=== PATIENT | male | born 1955 | race Caucasian/White ===

== ENCOUNTER 2020-12-26 07:39 | Outpatient (CLI) | payer BC, SELFPAY ==
[2020-12-26 08:52] LABS: Hematocrit 43.1 % (42.0-52.0); Hemoglobin 14.8 g/dL (14.0-18.0)
[2020-12-26 09:21] LABS: Anion Gap 1 mmol/L (8-16); Blood Urea Nitrogen 22 mg/dL (9-20); Calcium 8.8 mg/dL (8.4-10.2); Carbon Dioxide 34 mmol/L (22-30); Chloride 103 mmol/L (98-107); Estimated Glomerular Filt Rate > 60; Glucose 115 mg/dL (75-110); Potassium 4.5 mmol/L (3.4-5.0); Sodium 138 mmol/L (137-145)
[2020-12-26 09:33] LABS: LDL Cholesterol Direct 65 mg/dL
[2020-12-26 09:36] LABS: Hemoglobin A1C 7.1 % (<5.7)
[2020-12-26 10:43] LABS: Free T4 Free Thyroxine 1.25 ng/mL (0.78-2.19)
[2020-12-26 13:43] LABS: Prostate Specific Antigen < 0.1 ng/mL (< OR = 4.0)
== END 2020-12-26 07:40 | disposition home or self-care (01) ==
DX: E10.9 Type 1 diabetes mellitus without complications (principal); R94.8 Abnormal results of function studies of other organs and systems
CPT/HCPCS: 36415; 80048; 83036; 83721; 84153; 84439; 84443; 85014; 85018

== ENCOUNTER 2021-11-20 07:36 | Outpatient (CLI) | payer BC, SELFPAY ==
[2021-11-20 08:12] LABS: Estimated Glomerular Filt Rate > 60; Potassium 4.2 mmol/L (3.4-5.0)
[2021-11-20 08:15] LABS: Hemoglobin A1C 7.2 % (<5.7)
== END 2021-11-20 07:37 | disposition home or self-care (01) ==
LOC: ANHLAB 07:39
DX: E10.9 Type 1 diabetes mellitus without complications (principal)
CPT/HCPCS: 36415; 82565; 83036; 84132

== ENCOUNTER 2022-04-30 07:06 | Outpatient (CLI) | payer BC, SELFPAY ==
[2022-04-30 08:04] LABS: Cholesterol 129 mg/dL (0-200); Estimated Glomerular Filt Rate > 60; HDL Direct 42 mg/dL; Potassium 4.2 mmol/L (3.4-5.0); Triglycerides 48 mg/dL (<150)
[2022-04-30 08:05] LABS: Hemoglobin A1C 6.3 % (<5.7)
[2022-04-30 08:16] LABS: LDL Cholesterol Direct 66 mg/dL
[2022-04-30 10:29] LABS: Creatinine Urine 168.8 mg/dL
[2022-04-30 10:37] LABS: MALB Creatinine Ratio 3.9 mg/g (0-30); Microalbumin Urine Random 6.5 mg/L (0-16.7)
== END 2022-04-30 07:07 | disposition home or self-care (01) ==
LOC: ANHLAB 07:13
DX: E10.9 Type 1 diabetes mellitus without complications (principal); E78.49 Other hyperlipidemia
CPT/HCPCS: 36415; 80061; 82043; 82565; 83036; 84132

== ENCOUNTER 2022-10-29 07:30 | Outpatient (CLI) | payer BC, SELFPAY ==
[2022-10-29 08:46] LABS: Hemoglobin A1C 6.3 % (<5.7)
== END 2022-10-29 07:31 | disposition home or self-care (01) ==
DX: E10.9 Type 1 diabetes mellitus without complications (principal)
CPT/HCPCS: 36415; 83036

== ENCOUNTER 2023-04-28 07:28 | Outpatient (CLI) | payer BC, SELFPAY ==
[2023-04-28 08:27] LABS: Alanine Aminotransferase 13 U/L (6-50); Albumin Level 4.1 g/dL (3.5-5.1); Alkaline Phosphatase 43 U/L (38-126); Anion Gap 3 mmol/L (8-16); Aspartate Amino Transferase 17 U/L (17-59); Bilirubin,Total 0.8 mg/dL (0.2-1.3); Blood Urea Nitrogen 24 mg/dL (9-20); Calcium 8.5 mg/dL (8.4-10.2); Carbon Dioxide 35 mmol/L (22-30); Chloride 99 mmol/L (98-107); Estimated Glomerular Filt Rate > 60; Glucose 106 mg/dL (65-110); Lactate Dehydrogenase 129 U/L (120-246); Potassium 3.7 mmol/L (3.4-5.0); Sodium 137 mmol/L (137-145)
[2023-04-28 08:42] LABS: Creatinine Urine 255.6 mg/dL
[2023-04-28 08:46] LABS: MALB Creatinine Ratio 5.6 mg/g (0-30); Microalbumin Urine Random 14.4 mg/L (0-16.7)
[2023-04-28 08:48] LABS: Hemoglobin A1C 6.4 % (<5.7)
== END 2023-04-28 07:29 | disposition home or self-care (01) ==
DX: E10.9 Type 1 diabetes mellitus without complications (principal); E78.49 Other hyperlipidemia
CPT/HCPCS: 36415; 80053; 82043; 83036; 83615; 84443

== ENCOUNTER 2023-12-23 07:24 | Outpatient (CLI) | payer BC, SELFPAY ==
[2023-12-23 09:52] LABS: Hemoglobin A1C 6.4 % (<5.7)
== END 2023-12-23 07:25 | disposition home or self-care (01) ==
DX: E10.9 Type 1 diabetes mellitus without complications (principal)
CPT/HCPCS: 36415; 83036

== ENCOUNTER 2024-06-29 07:20 | Outpatient (CLI) | payer BC, SELFPAY ==
[2024-06-29 09:24] LABS: Microalbumin Urine Random 9.4 mg/L (0-16.7)
[2024-06-29 09:25] LABS: Creatinine Urine 233.2 mg/dL
[2024-06-29 20:24] LABS: Hemoglobin A1C 6.3 % (<5.7)
[2024-06-29 21:56] LABS: Alanine Aminotransferase 11 U/L (6-50); Albumin Level 3.9 g/dL (3.5-5.1); Alkaline Phosphatase 45 U/L (38-126); Anion Gap 6 mmol/L (4-12); Aspartate Amino Transferase 22 U/L (17-59); Bilirubin,Total 0.6 mg/dL (0.2-1.3); Blood Urea Nitrogen 24 mg/dL (9-20); Calcium 8.7 mg/dL (8.4-10.2); Carbon Dioxide 32 mmol/L (22-30); Chloride 101 mmol/L (98-107); Cholesterol 119 mg/dL (0-200); Estimated Glomerular Filt Rate > 60; Glucose 53 mg/dL (65-110); HDL Direct 34 mg/dL; Potassium 4.5 mmol/L (3.4-5.0); Sodium 139 mmol/L (137-145); Triglycerides 48 mg/dL (<150)
[2024-06-29 22:19] LABS: LDL Cholesterol Direct 63 mg/dL
[2024-06-29 23:05] LABS: Prostate Specific Antigen 0.1 ng/mL (< OR = 4.0)
== END 2024-06-29 07:21 | disposition home or self-care (01) ==
DX: R94.8 Abnormal results of function studies of other organs and systems (principal); E10.9 Type 1 diabetes mellitus without complications; E78.49 Other hyperlipidemia
CPT/HCPCS: 36415; 80053; 80061; 82043; 83036; 84153; 84443

== ENCOUNTER 2025-07-19 08:11 | Outpatient (CLI) | payer BC, SELFPAY ==
--- OUTSIDE RECORDS SUMMARY | 2024-07-05 06:30 | XMS_ITS ---
Author Organization [facility] [employer] Address [address] [place] [address] Care Team Providers Care Transmission Systems Operator Name Role Phone none, none Primary Care Provider UnavailJulianne Londono Unavailable [phone] REASON FOR VISIT 6mo dexcom f/u, labs at [facility] Encounters Encounter Location Date Provider Diagnosis [facility] [address] [address] 07/05/2024 Julianne Stubbs Plan Of Treatment No Information Progress Notes * James HART RDOB: (69 yo M)Acc No.[id number]:07/05/2024 DM Sensor Patient: Sandra CHAVEZ Alagabriela Peguero Provider: Bal Stubbs APRN :1955 A ge:68 Y S ex:Male Date:07/05/2024 [place] [facility] Subjective: * Chief Complaints: * 1 . 6mo dexcom f/u, labs at [facility]. * Medical History: Objective: * Vitals: Assessment: Plan: * Treatment: * * Electronic signature of Radha Stubbs APRN on 07/19/2025 at 08:21 AM CDT Sign off status: Pending * Provider: Bal Stubbs APRN Date: 0 07/05/2024 Generated for Dickson pinedo/Faxing/eTransmitting on: 0 07/19/2025 08:21 AM CDT
--- OUTSIDE RECORDS SUMMARY | 2025-02-01 05:00 | XMS_ITS | Continuity of Care Document ---
Author Organization [facility] Address [address] [place] [address] Phone Care Team Providers Care Automobile Body Customizer Name Role Phone Pedro Mancini MD, MD Unavailable Unavailable Allergies, Adverse Reactions, Alerts Substance Reaction Status Criticality No Known Allergies Active No Inform ation Medications Medication Instructions Dosage Effective Dates (start - stop) Status Comments Humalog 100 unit/mL subcutaneous solution inject by subcutaneous route per prescriber's instructions. Insulin dosing requires individualization. 0.00 - Active carvedilol 3.125 mg tablet take 1 tablet by oral route 2 times every day with food 3.125 MG - Active Tresiba FlexTouch U-100 insulin 100 unit/mL (3 mL) subcutaneous pen inject by subcutaneous route as per insulin protocol 0.00 - Active VITAMIN C (unknown strength) Not Available - Active FISH OIL (unknown strength) Not Available - Active VITAMIN D3 (unknown strength) Not Available - Active STANBACK ANALGESIC (unknown strength) Not Available - Active DIOVAN (unknown strength) Not Available - Active SIMVASTATIN (unknown strength) take 1 tablet by oral route every day in the evening Not Available - Active Procedures Procedure Date OFFICE/OUTPATIENT VISIT, EST REFRACTION EYE EXAM & TREATMENT OFFICE/OUTPATIENT VISIT, EST REFRACTION EYE EXAM & TREATMENT REFRACTION EYE EXAM & TREATMENT EYE EXAM & TREATMENT EYE EXAM & TREATMENT REFRACTION REFRACTION EYE EXAM & TREATMENT REFRACTION EYE EXAM & TREATMENT OFFICE/OUTPATIENT VISIT, EST EYE EXAM & TREATMENT REFRACTION EYE EXAM WITH PHOTOS EYE EXAM ESTABLISHED PAT OFFICE/OUTPATIENT VISIT, EST EYE EXAM & TREATMENT REFRACTION Advance Directives Directive Yes / No Effective Date File Name No Information Encounters Encounter Description Practice Location Reason(s) For Visit Diagnoses Date Provider Providers Copied on Encounter OFFICE/OUTPA TIENT VISIT, EST [facility], [address] [place] [address], [id number] tel:[phone] [facility] IDDM right eye and left eye (chief complaint) cataract right eye and left eye (chief complaint) Type 2 diabetes mellitus without complication, with long-term current use of insulinLong term (current) use of insulinAge-relat ed nuclear cataract, bilateralOcular hypertension, bilateral Jan- 5 [facility], [address] [place] [address] [place], [place], [id number]. tel:[phone] [facility], [address] [place] [address] [place], [place], [id number] tel:[phone] [facility] IDDM right eye and left eye several years (chief complaint) cataract right eye and left eye several years (chief complaint) LILY right eye and left eye several years (chief complaint) Type 2 diabetes mellitus without complication, with long-term current use of insulinAge-relat ed nuclear cataract, bilateralDry eye syndrome of bilateral lacrimal glandsPresbyopia 3 [facility], [facility] [place], [id number]. tel:[phone] Referring Provider: Pedro Hooker, [facility] [place], [address]. tel:[phone] OFFICE/OUTPA TIENT VISIT, EST [facility], [place], [id number] [phone] [facility] IDDM right eye and left eye several years (chief complaint) tearing left > right month(s) (chief complaint) cataract right eye and left eye several years (chief complaint) Type 2 diabetes mellitus without complication, with long-term current use of insulinLong term (current) use of insulinAge-relat ed nuclear cataract, bilateralDry eye syndrome of bilateral lacrimal glands 1 [facility], [facility] [place], [id number]. tel:[phone] [facility], [facility] [place], [id number] tel:[phone] [facility] f/u cataracts right eye and left eye several years (chief complaint) IDDM right eye and left eye 35 year(s) (chief complaint) Type 2 diabetes mellitus without complication, with long-term current use of insulinLong term (current) use of insulinPresbyopi aAge-related nuclear cataract, bilateral 9 [facility], [facility] [place], [id number]. [phone] [facility], [place], [id number] tel:[phone] [facility] half-way (current) use of insulinPresbyopi aType 2 diabetes mellitus without complication, with long-term current use of insulinAge-relat ed nuclear cataract, bilateral 7 [facility], [address], [id number]. tel:[phone] [facility], [facility] [place], [id number] tel:[phone] [facility] [place] Insulin use (long-term) in type 2 diabetesLong term (current) use of insulin 5 [facility], [address] [place] [place], [id number]. tel:[phone] [facility], [facility] [place], [id number] tel:[phone] [facility] Diabetes Mellitus Type 2, UncomplicatedPre sbyopia Aug- 4 [facility], [facility] [place], [id number]. tel:[phone] [facility], [facility] [place], [id number] tel:[phone] [facility] [place] Diabetes Mellitus Type 2, UncomplicatedPre sbyopiaIncipient senile cataract Jun- 3 [facility], [facility] [place], [id number]. tel:[phone] [facility], [facility] [place], [id number] tel:[phone] [facility] [place] Diabetes mellitus without mention of complication,Inc ipient senile cataract Feb-0 2 [facility], [facility] [place], [id number]. tel:[phone] [facility], [facility] [place], [id number] tel:[phone] [facility] [place] No Information Dec- 2 [facility], [facility] [place], [id number]. tel:[phone] OFFICE/OUTPA TIENT VISIT, EST [facility], [address], [id number] tel:[phone] [facility] [place] Diabetes mellitus without mention of complication, type II or unspecified type, not stated as uncontrolled Jan-3 0- 1 [facility], [facility] [place], [id number]. tel:[phone] [facility], [facility] [place], [id number] tel:[phone] [facility] [place] Diabetes mellitus without mention of complication, type II or unspecified type, not stated as uncontrolled Jan-1 0-201 0 [facility], [facility] [place], [id number]. tel:[phone] [facility], [facility] [place], [id number] tel:[phone] [facility] [place] Punctate keratitis Oct-0 9 [facility], [facility] [place], [id number]. tel:[phone] OFFICE/OUTPA TIENT VISIT, EST [facility], [facility] [place], [id number] tel:[phone] [facility] [place] Diabetes mellitus without mention of complication, type II or unspecified type, not stated as uncontrolled 9 [facility], [facility] [place], [id number]. tel:[phone] [facility] [place], [id number] tel:[phone] [facility] [place] Diabetes mellitus without mention of complication, type II or unspecified type, not stated as uncontrolled 8 [facility], [facility] [place], [id number]. tel:[phone] Family History Family Member Type Diagnosis Age At Onset Mother Problem (finding) Retinal Detachment Payers Payer name Insurance type Covered libertarian ID Authoriza tion(s) Medicare [place] MB [id number] [facility] [id number] Social History Type Description Quantity Date Captured Comments Alcohol Use Details Caffeine Use Details Unknown Tobacco Use Status Current non-smoker Smoking Status Never smoker Non-Smoking Tobacco Use Details : No Details Available : No Details Available Sex Male Chief Complaint And Reason For Visit From encounter dated '02/01/2025 10:00'. IDDM right eye and left eye (chief complaint) cataract right eye and left eye (chief complaint) Reason For Referral Reason For Referral No Information History Of Present Illness Encounter Date Complaint History Of Prese nt Illness cataract The 69 year old male presents for cataract in the right eye and left eye. no va changes not using any GTTS IDDM The 69 year old male presents for IDDM in the right eye and left eye. Last A1c was 2 weeks ago 6.1, BS is 88 right now cataract The 67 year old presents for evaluation of cataract in the right eye and left eye. It started several years ago. It affects near vision. The symptom is constant. The condition is worsening. blurry va nva is getting worse, but dva pt feels like has gotten a little better. LILY The 67 year old presents for evaluation of LILY in the right eye and left eye. It started several years ago. The symptom is constant. The condition is improving. Not using AT's, doesn't notice any dryness IDDM The 67 year old presents for evaluation of IDDM in the right eye and left eye. It started several years ago. The symptom is constant. The condition is stable. pt said his BS spiked after lunch today, which is not normal for his. 260 right after lunch.A1C 6.4BS just before lunch 110pt said he feels like his BS does sometimes make his va blurry tearing The 65 year old presents for evaluation of tearing in the left > right. It started month(s) ago. It affects OS > OD. The symptom is intermittent. It occurs with no pattern. The condition is not any better. Does not use any AT's cataract The 65 year old presents for evaluation of cataract in the right eye and left eye. It started several years ago. It affects VA not affected. The symptom is constant. It occurs always. The condition is stable. VA has been stable OU with current glasses. IDDM The 65 year old presents for evaluation of IDDM in the right eye and left eye. It started several years ago. It affects OU. The symptom is constant. It occurs always. The condition is stable. IDDM The 63 year old presents for evaluation of IDDM in the right eye and left eye. It started about 35 year(s) ago. The symptom is constant. It occurs always. The condition is stable. f/u cataracts The 63 year old presents for evaluation of f/u cataracts in the right eye and left eye. It started several years ago. It affects near vision. The symptom is constant. It occurs always. The condition is worsening. The condition is described as blurring. In addition, the condition is associated with reading. Pt denies wearing any glasses to read. Functional Status Date Functional Assessmen t No Information Instructions Date Instruction Additional Infor vonnie Return in 1 year Pedro Valle MD for Complete. Related to Type 2 diabetes mellitus without complication, with long-term current use of insulin Impression/Plan Related to Ocula r hypertension, bilateral Impression/Plan Related to Age-r elated nuclear cataract, bilateral Impression/Plan Related to half-way (current) use of insulin Impression/Plan Related to Type 2 diabetes mellitus without complication, with long-term current use of insulin Return in 1 year Pedro Valle MD for Complete and Dilate. Related to Type 2 diabetes mellitus without complication, with long-term current use of insulin Impression/Plan Related to Presb yopia Impression/Plan Related to Type 2 diabetes mellitus without complication, with long-term current use of insulin Impression/Plan Related to Age-r elated nuclear cataract, bilateral Impression/Plan Related to Dry e ye syndrome of bilateral lacrimal glands Return in 1 year Pedro Valle MD for Complete. Related to Type 2 diabetes mellitus without complication, with long-term current use of insulin Impression/Plan Related to Dry e ye syndrome of bilateral lacrimal glands Impression/Plan Related to Age-r elated nuclear cataract, bilateral Impression/Plan Related to Type 2 diabetes mellitus without complication, with long-term current use of insulin Impression/Plan Related to half-way (current) use of insulin Return in 1 year Pedro Valle MD for Complete. Related to Type 2 diabetes mellitus without complication, with long-term current use of insulin Impression/Plan Related to Type 2 diabetes mellitus without complication, with long-term current use of insulin Impression/Plan Related to salvage determiner (current) use of insulin Impression/Plan Related to Presb yopia Impression/Plan Related to Age-r elated nuclear cataract, bilateral Age-related nuclear cataract of both eyes OU Condition: established, stable. - Discussed with pt a cataract is clouding of the lens of the eye. Cataracts are generally not harmful to the eyes. When vision is blurry enough to interfere with a person's daily routine, cataract removal may be performed. Cataract surgery is relatively easy to go through and is very highly successful. Outcome may be limited after surgery if other eye disease is present.Not bothersome to pt at this time. Pt to call if vision/glare becomes bothersome. Monitor. Related to Age-related nuclear cataract of both eyes Presbyopia OU Condit ion: established, stable. - New glasses rx given to pt today. Pt to call with any vision problems. Related to Presbyopia Follow up - Return i n 1 year with Pedro Mancini MD for Complete. Related to Type 2 diabetes mellitus without complication, with long-term current use of insulin half-way (current) use of insulin OU Condition: established, stable. - See plan 1 Related to salvage determiner (current) use of insulin Type 2 diabetes sully itus without complication, with long-term current use of insulin OU Condition: established, stable. - Discussed with pt eye exam at least yearly. Control blood sugar, blood pressure and serum lipids to help avoid vision loss (which may become severe). Laser or medication treatment may be indicated if vision is ever threatened by diabetic eye changes. Continue insulin and/or diabetic medication(s) as directed by prescribing physician.No PSYCHOLOGICAL OPERATIONS SPECIALIST. Monitor. Related to Type 2 diabetes mellitus without complication, with long-term current use of insulin half-way (current) use of insulin OU Condition: established, stable. - Will continue to observe condition and or symptoms. Related to salvage determiner (current) use of insulin Insulin use (long-te rm) in type 2 diabetes OU Condition: established, stable. - Explained how diabetes can harm the eye and lead to vision loss. Stressed blood sugar/blood pressure/chol/lipid control to reduce risk of future progression. No diabetic changes seen today. Will continue to observe condition and or symptoms. Call with decreased vision or increased floaters. Related to Insulin use (long-term) in type 2 diabetes Follow up - Return i n 1 year with Pedro Mancini MD for Complete. Related to Insulin use (long-term) in type 2 diabetes Diabetes Mellitus Ty pe 2, Uncomplicated - Educational materials provided: Related to Diabetes Mellitus Type 2, Uncomplicated Diabetes Mellitus Ty pe 2, Uncomplicated OU Condition: established, stable. - Discussed eye exam at least yearly. Control blood sugar, blood pressure and serum lipids to help avoid vision loss (which may become severe). Laser or medication treatment may be indicated if vision is ever threatened by diabetic eye changes. Monitor. Related to Diabetes Mellitus Type 2, Uncomplicated Presbyopia OU Condit ion: established, stable. - New glasses rx given to pt today. Related to Presbyopia Follow up - Return i n 1 year with Pedro Mancini MD for Complete. Related to Diabetes Mellitus Type 2, Uncomplicated Diabetes mellitus wi thout mention of complication, OU Condition: established, stable. - Discussed eye exam at least yearly. Control blood sugar, blood pressure and serum lipids to help avoid vision loss (which may become severe). Laser or medication treatment may be indicated if vision is ever threatened by diabetic eye changes. Monitor. Related to Diabetes mellitus without mention of complication, Presbyopia OU Condit ion: established, stable. - New glasses rx given to pt today. Related to Presbyopia Follow up - Return i n 1 year with Pedro Mancini MD for Complete. Related to Diabetes mellitus without mention of complication, Diabetes mellitus wi thout mention of complication, - Educational materials provided: Related to Diabetes mellitus without mention of complication, Incipient senile cat aract OU Condition: established, stable. - Discussed a cataract is clouding of the lens of the eye. Cataracts are generally not harmful to the eyes. When vision is blurry enough to interfere with a person's daily routine, cataract removal may be performed. Cataract surgery is relatively easy to go through and is very highly successful. Outcome may be limited after surgery if other eye disease is present. Monitor. Related to Incipient senile cataract Incipient senile cat aract OS Condition: new prob, no addtl w/u needed. - A cataract is clouding of the lens of the eye. Cataracts are generally not harmful to the eyes. When vision is blurry enough to interfere with a person's daily routine, cataract removal may be performed. Cataract surgery is relatively easy to go through and is very highly successful. Outcome may be limited after surgery if other eye disease is present.New glasses rx given to pt today. Related to Incipient senile cataract Diabetes mellitus wi thout mention of complication, OU Condition: established, stable. - Eye exam at least yearly. Control blood sugar, blood pressure and serum lipids to help avoid vision loss (which may become severe). Laser or medication treatment may be indicated if vision is ever threatened by diabetic eye changes. Related to Diabetes mellitus without mention of complication, Follow up - Return i n 1 year with Pedro Mancini MD for Complete. Related to Diabetes mellitus without mention of complication, Assessments Type Assessment Date assessment Type 2 diabetes sully itus without complication, with long-term current use of insulin assessment half-way (current) use of insul in assessment Age-related nuclear cataract, bi lateral impression Type 2 diabetes sully itus without complication, with long-term current use of insulin: E11.9 impression salvage determiner (current) use of insulin: Z79.4 Bilateral. Condition: established, stable impression Age-related nuclear cataract, bilateral: H25.13 Bilateral. Condition: established, slightly worse assessment Ocular hypertension, bilateral M impression Ocular hypertension, bilateral: H40.053 Bilateral. Condition: new problem, addtl w/u needed Patient Care Teams Name Effective Dates (start - stop) Status Members No Information
--- OUTSIDE RECORDS SUMMARY | 2025-07-19 08:22 | XMS_ITS | Patient Health Record ---
Author Organization [employer] [facility] [employer] [facility] Address [address] [place] [address] Care Team Providers Care Call Center Operator Name Role Phone none, none Primary Care Provider Julianne Yates Unavailable [phone] Allergies No Known Allergies Reason For Referral No Information Medications Medication SIG (Take, Route, Frequency, Duration) Notes Start Date End Date Status Vitamin D3 50 MCG (1999) 2 tablet Orally Once a day A ctive Aspir-Low 81 MG 1 tablet Orally Once a day; Duration: 30 day(s) Active Dexcom G7 Sensor - as directed Invitro 1 sensor every 10 days; Duration: 90 days 10/03/2023 Active OneTouch Ultra Test 0 USE 1 TEST STRIP F OUR TIMES DAILY WHEN TESTING BLOOD SUGAR; Duration: 06/13/2014 Active BD Pen Needle Harriet 2nd Gen 32G X 4 MM use one pen needle in vitro 4 times daily; Duration: 90 days Active Vitamin C 1000 MG 1 tablet Orally Once a day Active Simvastatin 20 MG TAKE 1 TABLET BY ANGELINE TH EVERY DAY IN THE EVENING; Duration: 90 Active Carvedilol 6.25 MG 1 tablet with food O rally Twice a day; Duration: 90 days Active Valsartan-hydroCHLOROthiaz radha 320-12.5 MG TAKE 1 TABLET BY MOUTH EVERY DAY; Duration: 90 Active Fish Oil 1000 MG 1 capsule Orally Onc e a day Active Tresiba FlexTouch 100 UNIT/ML inject 14 units under the skin daily Subcutaneous once a day; Duration: 90 days Active OneTouch Ultra Test 0 TEST BLOOD SUGAR F OUR TIMES DAILY.; Duration: 90 Activ e HumaLOG 100 UNIT/ML 4- 10 units Subcutan eous 3 times daily before meals; Duration: 90 days Active Glucagon Emergency 1 MG as directed Inje ction as directed; Duration: 30 days 06/20/2019 Active HumaLOG 100 UNIT/ML INJECT 5 TO 19 UNITS UNDER THE SKIN THREE TIMES DAILY DIRECTED; Duration: 90 Active OneTouch UltraSmart w/Device as directed Three times a day Active Immunizations Vaccine Route Administration Date Status Comme nts Afluria Flu Vaccine IM Intramuscular 09/26/2019 Administer ed Afluria Flu Vaccine IM Intramuscular 10/01/2020 Administer ed Afluria Flu Vaccine IM Intramuscular 01/02/2024 Administer ed Flucelvax IM Intramuscular 12/06/2018 Administered zzzFlucelvax IM Intramuscular 12/08/2017 Administered Problems Problem Type SNOMED Code ICD Code Onset Dates Problem Status W/U Status Risk Notes Problem Essential hypertension (89949225) Essential (primary) hypertension (I10) Active confirmed Problem Type I diabetes mellitus without complication (016949465) Type 1 diabetes mellitus without complications (E10.9) Active confirmed Problem Cardiac arrhythmia (171102948) Cardiac arrhythmia (I49.9) Active confirmed Problem Hyperlipidemia (62433131) Other hyperlipidemia (E78.49) Active confirmed Plan Of Treatment Future Test Test Name Order Date Hemoglobin 10/01/2020 HEMATOCRIT 10/01/2020 TSH 06/25/2024 Hgb A1c with eAG Estimation 06/25/2024 Albumin/Creatinine Ratio,Urine 4 Comp. Metabolic Panel (14) 06/25/2024 PSA Total (Reflex To Free) 06/25/2024 LP+LDL/HDL Ratio 06/25/2024 Insurance Providers Payer Name Payer Address Payer Phone Subscriber Number Group Number Insured Name Patient Relationship to Insured Coverage Start Date Coverage End Date [facility] [address] [place] [address] [id number] James Hart Self - patient is the insured Medical (General) History Medical History History ICD Code Diabetes type 1 since about 1982 hypertension hyperlipidemia prostate cancer Surgical History Surgery Date(Month/Year) prostate seed cancer treatment implant tonsilectomy & adnoidectomy 1960
--- OUTSIDE RECORDS SUMMARY | 2025-07-19 08:22 | XMS_ITS | Clinical Summary ---
Author Organization [facility] Address [address] [place] [address] Care Team Providers Care Restaurant Service Manager Name Role Phone No, Physician Primary Care Provider [phone] Allergies No known active allergies Medications aspirin 81 mg tablet daily. Active ONETOUCH ULTRA BLUE TEST STRIP strip TEST BLOOD SUGAR QID. 3 8 Active carvedilol (COREG) 6.25 mg tablet TK 1 T PO BID 1 8 Active BASAGLAR KWIKPEN U-100 INSULIN 100 unit/mL (3 mL) insulin pen UTD INJ 23 UNITS HS SC 4 8 Active simvastatin (ZOCOR) 20 mg tablet daily. Active valsartan-hydro chlorothiazide (DIOVAN-HCT) 320-12.5 mg per tablet TK 1 T PO QD 2 8 Active HumaLOG U-100 Insulin 100 unit/mL cartridge ADMINISTER 5 TO 19 UNITS UNDER THE SKIN THREE TIMES DAILY FOR 9 DAYS DIRECTED 0 Active Tresiba FlexTouch U-100 100 unit/mL (3 mL) insulin pen INJ 15 UNITS SC D 0 Active cholecalciferol (VITAMIN D-3) 2000 unit capsule 2,000 Units daily Active Active Problems Problem Noted Date Diagnosed Date Hyperlipidemia 04/15/2017 Hypertension 04/15/2017 Premature atrial contraction 04/15/2017 Right fascicular block 04/15/2017 Surgical History Surgery Date Site/Laterality Comments TONSILLECTOMY PROSTATE SURGERY Medical History Medical History Date Comments Cancer (HCC) Diabetes mellitus (HCC) Hypertension Family History Medical History Relation Name Comments Cancer Father Diabetes Father Heart disease Father Heart disease Mother Family history of cardiac disorder - (Added by TW Conv) Hypertension Mother Relation Name Status Comments Father Mother Social History Tobacco Use Types Packs/Day Years Used Date Smoking Tobacco: Never Smokeless Tobacco: Never Personal Safety Answer Date Recorded Getting School Help Needed Not on file 11/30 Sex and Gender Information Value Date Recorded Sex Assigned at Not on file 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 Gender Identity Not on file Sexual Orientation Not on file Obstetrics History Last Filed Vital Signs Vital Sign Reading Time Taken Comments Blood Pressure 169/78 04/15/2017 8:09 AM CDT Pulse 89 04/15/2017 8:09 AM CDT Temperature - - Respiratory Rate - - Oxygen Saturation 99% 04/15/2017 8:09 AM CDT Inhaled Oxygen Concentration - - Weight 86.2 kg (190 lb) 01/24/2024 2:25 PM 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 Height 182.9 cm (6') 01/24/2024 2:25 PM 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 Body Mass Index 25.77 01/24/2024 2:25 PM 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 Plan of Treatment Health Maintenance Due Date Last Done Comments Colon Cancer Screening-Colonoscopy 1955 Depression Screening 1955 Fall Risk Assessment 1955 Hepatitis C Screening 1955 Prostate Cancer Screening-PSA 1955 DTaP/Tdap/Td Vaccine (1 - Tdap) 1966 Hepatitis B Screening 1973 Pneumococcal vaccine 65+ (1 of 1 - PCV) 2005 Zoster Vaccine (1 of 2) 2005 Abdominal Aortic Aneurysm (A AA) Screen 2020 Well Visit 65+ 2020 Covid-19 Vaccine ( - 2023-2 5 season) 2024 07/03/2023, 04/30/2022, 10/02/2021, Additional history exists Influenza Vaccine (#1) 2025 01/15/2022 Insurance MEDICARE [facility] Care Teams Restaurant Service Manager Relationship Specialty Start Date End Date No, Physician PCP - General 07/17/18
[2025-07-19 09:06] LABS: Alanine Aminotransferase 8 U/L (6-50); Albumin Level 4.0 g/dL (3.5-5.1); Alkaline Phosphatase 41 U/L (38-126); Anion Gap 5 mmol/L (4-12); Aspartate Amino Transferase 20 U/L (17-59); Bilirubin,Total 1.0 mg/dL (0.2-1.3); Blood Urea Nitrogen 21 mg/dL (9-20); Calcium 9.0 mg/dL (8.4-10.2); Carbon Dioxide 31 mmol/L (22-30); Chloride 100 mmol/L (98-107); Cholesterol 121 mg/dL (0-200); Estimated Glomerular Filt Rate > 60; Glucose 83 mg/dL (65-110); HDL Direct 39 mg/dL; Potassium 4.6 mmol/L (3.4-5.0); Sodium 136 mmol/L (137-145); Total Protein 6.7 g/dL (6.3-8.2); Triglycerides 37 mg/dL (<150)
[2025-07-19 09:43] LABS: Thyroid Stimulating Hormone 2.750 uIU/mL (0.465-4.680)
[2025-07-19 10:11] LABS: Hemoglobin A1C 6.2 % (<5.7)
[2025-07-19 10:19] LABS: MALB Creatinine Ratio < 5.3 mg/g (0-30)
== END 2025-07-19 08:12 | disposition home or self-care (01) ==
DX: E10.9 Type 1 diabetes mellitus without complications (principal)
CPT/HCPCS: 36415; 80053; 80061; 82043; 83036; 84443